=== PATIENT | male | born 1965 | race Caucasian/White ===

== ENCOUNTER → 2022-01-07 | Outpatient (CLI) | payer BC ==
[~2022-01-07] MED LIST: ALEVE220 M1 PO; CLARITIN10 MG PO; MULTIVITAMINS1 EAC1 PO; PRINIVIL20 MG PO
== END ==
LOC: KOH-I 08:00
DX: M93.20 Osteochondritis dissecans of unspecified site (principal)
CPT/HCPCS: 73721

== ENCOUNTER → 2022-01-26 | Outpatient (CLI) | payer BC | LOC: KOH-I 10:13 | DX: S82.892A Other fracture of left lower leg, initial encounter for closed fracture (principal); X58.XXXA Exposure to other specified factors, initial encounter; R93.6 Abnormal findings on diagnostic imaging of limbs | CPT/HCPCS: 73610 ==

== ENCOUNTER 2022-08-02 23:42 | Emergency (ER) | payer BC ==
[2022-08-03 00:06] LABS: HEMOGLOBIN 14.4 gm/dl (14.0-17.5); RED BLOOD COUNT 4.82 M/UL (4.20-5.50); WHITE BLOOD COUNT 6.6 K/UL (4.5-11.0)
[2022-08-03 00:33] LABS: BUN/CREATININE RATIO 18 (0-10)
== END 2022-08-03 03:53 | disposition home or self-care (01) ==
LOC: ER1 23:42
PROVIDERS: Emergency Medicine
DX: R07.9 Chest pain, unspecified (principal); Z88.0 Allergy status to penicillin; Z79.899 Other long term (current) drug therapy
CPT/HCPCS: 71046; 80053; 82550; 82553; 84484; 85025; 93005; 99285